=== PATIENT | female | born 1965 | race Caucasian/White ===

== ENCOUNTER → 2018-07-26 10:00 | Outpatient (CLI) | payer OTHER, SELFPAY ==
--- NOTE | 2018-07-26 | DI.MRI.S_ITS ---
PROCEDURE: MR SHOULDER LT WO CON INDICATIONS: CHRONIC LEFT SHOULDER PAIN TECHNIQUE: Noncontrast oblique coronal T2 fast spin echo with fat saturation, oblique sagittal T1 spin echo and T2 fast spin echo with fat saturation, axial T1 spin echo and T2 fast spin echo with fat saturation through the shoulder. COMPARISON: None. FINDINGS: Image quality: Excellent. Rotator cuff: There is partial-thickness tear of the supraspinatus tendon along the articular and bursal surface. There is tendon thickening consistent with superimposed or secondary tendinosis. Mild thickening of irregularity of the subscapularis tendon consistent with tendinitis. The infraspinatus tendon appears intact throughout. Sagittal images demonstrate no muscle atrophy. Bones and bursae: No bone marrow contusions or fractures. Mild acromioclavicular and moderate glenohumeral joint degeneration. The acromion demonstrates conventional anatomy, without an os acromiale. No pathologic subacromial-subdeltoid or subcoracoid bursal fluid is present. Capsule and soft tissues: There is degenerative fraying of the anterior superior labrum. In the absence of intra-articular contrast, the glenohumeral ligaments appear intact. The long head of the biceps tendon demonstrates normal location and morphology. The rotator interval appears normal, without fibrosis. The coracohumeral ligament is normal in thickness. IMPRESSION: 1. Partial-thickness tear of the supraspinatus tendon with superimposed or secondary tendinosis. 2. Subscapularis tendinitis. 3. Degenerative fraying of the anterosuperior labrum. 4. Mild acromioclavicular and moderate glenohumeral joint degeneration. Dictated by: Estrella Wild M.D. on 07/26/2018 at 11:59 Transcribed by: [email or web address] on 07/26/2018 at 12:12 Approved by: Estrella Wild M.D. on 07/27/2018 at 11:15
== END ==
PROVIDERS: PCP Specialist; Visit Provider Orthopaedic Surgery
DX: M25.512 Pain in left shoulder (principal); G89.29 Other chronic pain; M75.112 Incomplete rotator cuff tear or rupture of left shoulder, not specified as traumatic; M75.92 Shoulder lesion, unspecified, left shoulder; M19.012 Primary osteoarthritis, left shoulder
CPT/HCPCS: 73221